=== PATIENT | female | born 1985 | race African-American/Black ===

== ENCOUNTER 2023-08-18 10:29 | Emergency (ER) | payer BC ==
[~2023-08-18 10:29] MED LIST: GASTROGRAFIN 30 ML BOT ONE; Iopamidol 370 76% 100 ML VIAL ONE
[2023-08-18] MEDS ORDERED: Morphine 4 MG/ML VIAL ONE (11:02)
[2023-08-18] MEDS ORDERED: Ondansetron PF 4 MG/2 ML Vial ONE (11:02)
[2023-08-18] MEDS ORDERED: Sodium Chloride 0.9% 1,000 ML ONE (11:02)
[2023-08-18] MEDS ORDERED: Pantoprazole 40 MG VIAL ONE (11:02)
[2023-08-18 11:16] LABS: #Basophils 0.1 thou/uL (0.0-0.2); #Eosinphils 0.2 thou/uL (0.0-0.7); #Lymphocytes 1.9 thou/uL (1.20-3.40); #Monocytes 0.4 thou/uL (0.11-0.59); #Neutrophils 3.6 thou/uL (1.40-6.50); %Basophils 1.5 % (0.0-1.0); %Eosinophils 3.1 % (0.0-10.0); %Lymphocytes 31.1 % (21.0-51.0); %Monocytes 6.4 % (0.0-10.0); Hematocrit 36.6 % (36.0-47.0); Hemoglobin 11.7 g/dL (12.0-16.0); Mean Corpuscular Hemoglobin 26.5 pg (27.0-31.0); Mean Corpuscular Volume 82.9 fl (78.0-98.0); Mean Platelet Volume 6.3 fL (7.4-10.4); Platelet Count 353 10x3/uL (130-400); Red Blood Cell (RBC) Count 4.41 mill/uL (4.20-5.40); White Blood Cell (WBC) Count 6.2 10x3/uL (4.8-10.8)
[2023-08-18 11:25] LABS: BHCG - Serum Negative (NEGATIVE)
[2023-08-18 11:26] LABS: Pregs Control Bar Appear? YES (CONTROL BAR)
[2023-08-18 11:35] LABS: Troponin I 0.014 ng/mL (< 0.028)
[2023-08-18 11:36] LABS: ALT (SGPT) 28 U/L (8-55); AST (SGOT) 27 U/L (5-34); Albumin 3.9 g/dL (3.5-5.0); Alkaline Phosphatase 98 U/L (40-110); Anion Gap 13 mmol/L (10-20); BUN (Urea Nitrogen) 6 mg/dL (7.0-18.7); Bilirubin, Total 0.3 mg/dL (0.2-1.2); Calc. Creatinine Clearance 0 mL/min (70-130); Calcium 8.8 mg/dL (7.8-10.44); Carbon Dioxide 26 mmol/L (22-29); Chloride 106 mmol/L (98-107); Estimated GFR 101; Globulin 3.3 g/dL (2.4-3.5); Glucose 103 mg/dL (70-105); Lipase 20 U/L (8-78); Potassium 3.5 mmol/L (3.5-5.1); Protein, Total 7.2 g/dL (6.0-8.3); Sodium 141 mmol/L (136-145)
[2023-08-18 12:24] LABS: Bilirubin Negative (Negative); Blood, Urine Negative (Negative); Clarity Clear (Clear); Glucose, Urine (Dipstick) Negative (Negative); Ketone, Urine 15 mg/dL (Negative); Leukocyte Trace (Negative); Nitrite Negative (Negative); Protein, Urine (Dipstick) Negative (Neg-Trace); Urobilinogen 0.2 mg/dL (Less than 2)
[2023-08-18 12:27] LABS: Bacteria/HPF Rare-Few HPF (None Seen); CAUTI Indications for Culture Pelvic or flank pain; RBC/HPF None Seen HPF (0-3); Squamous Epithelial 0-3 HPF (0-3); Urine Culture Reflex No No; WBC/HPF 0-3 HPF (0-3)
== END 2023-08-18 14:50 | disposition left against medical advice (07) ==
LOC: NAV ERS 10:29
DX: K59.00 Constipation, unspecified (principal); Z98.84 Bariatric surgery status; I10 Essential (primary) hypertension
CPT/HCPCS: 74177; 80053; 81001; 83605; 83690; 84484; 84703; 85025; 93005; 96374; 96375; C9113; J2270; J2405; J7050; Q9963; Q9967

== ENCOUNTER 2023-11-06 07:39 | Emergency (ER) | payer BC ==
[2023-11-06] MEDS ORDERED: Lidocaine 2% Viscous 100 ML BOTTLE ONE (08:18)
[2023-11-06] MEDS ORDERED: Mag-Al Plus 1200/1200/120 MG (30 mL) UDCUP ONE (08:19)
[2023-11-06] MEDS ORDERED: Ondansetron PF 4 MG/2 ML Vial ONE (08:28)
[2023-11-06] MEDS ORDERED: Sodium Chloride 0.9% 1,000 ML ONE (08:28)
[2023-11-06 08:45] LABS: #Basophils 0.1 thou/uL (0.0-0.2); #Eosinphils 0.1 thou/uL (0.0-0.7); #Monocytes 0.3 thou/uL (0.11-0.59); %Basophils 1.1 % (0.0-1.0); %Eosinophils 1.5 % (0.0-10.0); %Lymphocytes 36.2 % (21.0-51.0); %Monocytes 5.9 % (0.0-10.0); %Neutrophils 55.3 % (42.0-75.0); Hematocrit 35.6 % (36.0-47.0); Hemoglobin 11.8 g/dL (12.0-16.0); Mean Corpuscular HGB CONC 33.2 g/dL (32.0-36.0); Mean Corpuscular Hemoglobin 29.1 pg (27.0-31.0); Mean Corpuscular Volume 87.7 fl (78.0-98.0); Mean Platelet Volume 6.4 fL (7.4-10.4); Platelet Count 311 10x3/uL (130-400); RBC Distribution Width 13.4 % (11.5-14.5); Red Blood Cell (RBC) Count 4.05 mill/uL (4.20-5.40); White Blood Cell (WBC) Count 5.4 10x3/uL (4.8-10.8)
[2023-11-06 09:01] LABS: Sodium 139 mmol/L (136-145)
[2023-11-06 09:02] LABS: ALT (SGPT) 30 U/L (8-55); AST (SGOT) 28 U/L (5-34); Albumin 3.8 g/dL (3.5-5.0); Alkaline Phosphatase 103 U/L (40-110); Anion Gap 10 mmol/L (10-20); BUN (Urea Nitrogen) 9 mg/dL (7.0-18.7); Bilirubin, Total 0.4 mg/dL (0.2-1.2); Calc. Creatinine Clearance 0 mL/min (70-130); Calcium 8.9 mg/dL (7.8-10.44); Carbon Dioxide 28 mmol/L (22-29); Chloride 105 mmol/L (98-107); Estimated GFR 97; Glucose 94 mg/dL (70-105); Lipase 4 U/L (8-78); Potassium 3.6 mmol/L (3.5-5.1); Protein, Total 6.8 g/dL (6.0-8.3)
[2023-11-06] MEDS ORDERED: Famotidine/PF 20 mg/2ml Vial ONE (09:31)
== END 2023-11-06 10:26 | disposition home or self-care (01) ==
LOC: NAV ERS 07:39
DX: R10.13 Epigastric pain (principal); K21.9 Gastro-esophageal reflux disease without esophagitis; I10 Essential (primary) hypertension; Z79.899 Other long term (current) drug therapy
CPT/HCPCS: 80053; 83690; 85025; 96374; 96375; J2405; J7050; S0028

== ENCOUNTER 2024-06-05 21:23 | Emergency (ER) | payer BC ==
[2024-06-05] MEDS ORDERED: traMADol HCl 50 MG TAB ONE (21:51)
[2024-06-05 22:02] LABS: Bilirubin Negative (Negative); Blood, Urine Negative (Negative); Clarity Clear (Clear); Glucose, Urine (Dipstick) Negative (Negative); Ketone, Urine Negative (Negative); Leukocyte Trace (Negative); Nitrite Negative (Negative); Protein, Urine (Dipstick) Negative (Neg-Trace); Specific Gravity, Urine 1.025 (1.005-1.030)
[2024-06-05 22:08] LABS: Bacteria/HPF Rare-Few HPF (None Seen); CAUTI Indications for Culture Pelvic or flank pain; RBC/HPF 0-3 HPF (0-3)
[2024-06-05 22:09] LABS: Urine Culture Reflex No No
[2024-06-05] MEDS ORDERED: Sulfameth/Trimethoprim DS 800-160mg TAB ONE (23:01)
[2024-06-05] MEDS ORDERED: HYDROcodone/Acetaminophen 5/325 mg Tablet ONE (23:02)
== END 2024-06-05 23:14 | disposition home or self-care (01) ==
LOC: NAV ERS 21:23
DX: S39.012A Strain of muscle, fascia and tendon of lower back, initial encounter (principal)
CPT/HCPCS: 72100; 81001

== ENCOUNTER 2025-04-22 21:14 | Emergency (ER) | payer OTHER ==
[2025-04-22 23:16] LABS: Glucose, Urine (Dipstick) Negative (Negative); Leukocyte Negative (Negative); Protein, Urine (Dipstick) Negative (Neg-Trace); Specific Gravity, Urine 1.020 (1.005-1.030)
[2025-04-22 23:25] LABS: Bacteria/HPF Rare-Few HPF (None Seen); CAUTI Indications for Culture Dysuria,urgency,freq; RBC/HPF 0-3 HPF (0-3); Urine Culture Reflex No No; WBC/HPF 0-3 HPF (0-3)
[2025-04-22] MEDS ORDERED: metroNIDAZOLE 500 MG TAB ONE (23:31)
[2025-04-24 05:42] LABS: Chlam.trachomatis by PCR,Urine Not Detected (NotDetected); GC N.gonorrhoeae PCR,UrineVOID Not Detected (NotDetected)
== END 2025-04-22 23:38 | disposition home or self-care (01) ==
LOC: NAV ERS 21:14
DX: N76.0 Acute vaginitis (principal); B96.89 Other specified bacterial agents as the cause of diseases classified elsewhere; I10 Essential (primary) hypertension
CPT/HCPCS: 81001; 87491; 87591; 99283

== ENCOUNTER 2025-05-30 08:26 | Emergency (ER) | payer OTHER ==
[2025-05-30 09:12] LABS: Glucose, Urine (Dipstick) Negative (Negative); Leukocyte Large (Negative); Protein, Urine (Dipstick) Trace mg/dL (Neg-Trace); Specific Gravity, Urine 1.015 (1.005-1.030)
[2025-05-30 09:15] LABS: Pregnancy Test - Urine (BHCG) Negative (Negative); Pregu Control Background? CLEAR/WHITE (CLR/WHITE); Pregu Control Bar Appear? YES (CONTROL BAR)
[2025-05-30 09:19] LABS: CAUTI Indications for Culture Dysuria,urgency,freq
[2025-05-30 09:20] LABS: Bacteria/HPF 1+ HPF (None Seen); Yeast-Budding 1+ HPF (None Seen)
[2025-05-30 09:21] LABS: Urine Culture Reflex Yes Yes
== END 2025-05-30 09:35 | disposition home or self-care (01) ==
LOC: NAV ERS 08:26
DX: B37.31 Acute candidiasis of vulva and vagina (principal); N39.0 Urinary tract infection, site not specified; I10 Essential (primary) hypertension
CPT/HCPCS: 81001; 81025; 87077; 87086; 99283